=== PATIENT | male | born 1995 | race Caucasian/White ===

== ENCOUNTER 2021-06-20 18:53 | Emergency (ER) | payer OTHER ==
[~2021-06-20] VITALS: Ht 182.9 cm; Wt 101.8 kg
[2021-06-20] MEDS ORDERED: TRAMADOL 50 MG TAB PO (20:58)
[2021-06-20] MEDS ORDERED: CEPHALEXIN500 M1 PO (20:58)
[2021-06-20 21:11] VITALS: BP 126/67
== END 2021-06-20 21:11 | disposition home or self-care (01) ==
LOC: ED 18:53
DX: S61.432A Puncture wound without foreign body of left hand, initial encounter (principal); F17.210 Nicotine dependence, cigarettes, uncomplicated; W34.00XA Accidental discharge from unspecified firearms or gun, initial encounter
CPT/HCPCS: 90715; J1885

== ENCOUNTER → 2021-12-29 | Outpatient (CLI) | payer OTHER ==
[~2021-12-29] MED LIST: CEPHALEXIN500 M1 PO; TRAMADOL 50 MG TAB PO
== END ==
LOC: RAD 11:30
DX: M50.20 Other cervical disc displacement, unspecified cervical region (principal); R20.0 Anesthesia of skin
CPT/HCPCS: A9585

== ENCOUNTER → 2023-09-29 | Outpatient (CLI) | payer OTHER | LOC: RAD 14:12 | DX: S32.030D Wedge compression fracture of third lumbar vertebra, subsequent encounter for fracture with routine healing (principal); X58.XXXD Exposure to other specified factors, subsequent encounter ==

== ENCOUNTER 2024-04-07 15:26 | Emergency (ER) | payer SELFPAY ==
[~2024-04-07] VITALS: Ht 182.9 cm; Wt 101.8 kg
[2024-04-07] MEDS ORDERED: Acetaminophen 500 MG TAB PO ONE (16:00)
[2024-04-07] MEDS ORDERED: AMOXICILLIN AND1 TA2 PO (17:10)
[2024-04-07 17:11] VITALS: BP 145/81
== END 2024-04-07 17:19 | disposition home or self-care (01) ==
LOC: ED 15:26
DX: S61.212A Laceration without foreign body of right middle finger without damage to nail, initial encounter (principal); S60.412A Abrasion of right middle finger, initial encounter; S60.414A Abrasion of right ring finger, initial encounter; X58.XXXA Exposure to other specified factors, initial encounter